=== PATIENT | female | born 1970 | race Caucasian/White ===

== ENCOUNTER 2016-10-30 00:59 | Emergency (ER) | payer OTHER ==
--- NOTE | 2016-10-30 02:47 | C.PDOC ---
History Of Present Illness Pt presents to ER with c/o of pain to left shoulder, arm, ribs and hip s/o fell in shower and hit her left side on the rim of the tub. Pt denies Head injury or LOC - HPI Time Seen by Provider: 10/30/16 01:23 Chief Complaint (Nursing): Trauma History Per: Patient History/Exam Limitations: no limitations Location Of Injury: Left: Chest (ribs), Elbow, Forearm, Hip, Shoulder Severity: Moderate Pain Scale Rating Of: 5 Past Medical History Vital Signs: Last Vital Signs Temp 98 F 10/30/16 03:14 Pulse 60 10/30/16 03:14 Resp 18 10/30/16 03:14 BP 114/78 10/30/16 03:14 Pulse Ox 97 10/30/16 04:07 - Medical History PMH: Asthma Family History: States: Unknown Family Hx - Social History Hx Tobacco Use: Yes Hx Alcohol Use: Yes Hx Substance Use: No - Immunization History Hx Tetanus Toxoid Vaccination: No Hx Influenza Vaccination: No Hx Pneumococcal Vaccination: No Review Of Systems Eyes: Negative for: Vision Change Cardiovascular: Positive for: Other (left ribs). Negative for: Chest Pain Respiratory: Negative for: Shortness of Breath Gastrointestinal: Negative for: Nausea, Vomiting Musculoskeletal: Positive for: Shoulder Pain, Leg Pain (left hip), Other Skin: Positive for: Bruising Neurological: Negative for: Weakness, Numbness Physical Exam - Physical Exam Appears: Well, Non-toxic, No Acute Distress Skin: Normal Color Head: Atraumatic Eye(s): bilateral: Normal Inspection, PERRL, EOMI Neck: Normal, No Midline Cervical Tenderness, No Paracervical Tenderness Chest: No Deformity, Tenderness (left mid intercostal area posteriorly), Ecchymosis (left lateral breas tissue) Respiratory: Normal Breath Sounds, No Wheezing Extremity: No Normal ROM (causes pain to LUE, left hip), Tenderness (ant left shoulder , left forearm and left hip), No Deformity, No Swelling Neurological/Psych: Oriented x3, Normal Speech Gait: Other ED Course And Treatment O2 Sat by Pulse Oximetry: 97 - Other Rad Left shoulder/ forearm X-Ray: Interpreted by Me, Viewed By Me left hip X-Ray: Interpreted by Me, Viewed By Me Interpretation: negative left ribs X-Ray: Interpreted by Me, Viewed By Me Interpretation: No fx Reassessment Condition: Improved Disposition Counseled Patient/Family Regarding: Diagnosis, Need For Followup, Rx Given - Disposition Referrals: at [facility] [Outside] Disposition: HOME/ ROUTINE Disposition Time: 02:55 Condition: STABLE Additional Instructions: Take motrin for pain Follow up with pMD or in clinic Return to ER if worse Prescriptions: Ibuprofen [Motrin] 600 mg PO Q6H #30 tab Instructions: Contusion in Adults (ED) Forms: [facility] (Cymraes), Work Excuse - Clinical Impression Clinical Impression: Contusion of multiple sites
[2016-10-30 03:14] VITALS: BP 114/78; PULSE 60; RESP 18; TEMP 98
[2016-10-30 04:07] VITALS: O2SAT 97
--- NOTE | 2016-10-30 10:31 | RAD ---
PROCEDURE: Radiographs of the Left Shoulder HISTORY: pain COMPARISON: Chest x-ray performed 08/13/15 FINDINGS: BONES: No acute displaced fracture. The distal clavicle and underlying ribs appear intact. Well corticated 2 mm ossific density at the level the acromioclavicular joint space likely degenerative or related to remote trauma. JOINTS: No acute dislocation. SOFT TISSUES: Soft tissues appear unremarkable. No evidence of radiopaque foreign body. IMPRESSION: No acute displaced fracture or dislocation identified. If symptoms persist or if there is continued clinical concern, x-ray follow-up in 7-10 days should be considered.
--- NOTE | 2016-10-30 11:31 | RAD ---
PROCEDURE: Radiographs of the Left Forearm HISTORY: pain, fall COMPARISON: None available. TECHNIQUE: Frontal and lateral views obtained. FINDINGS: BONES: No fracture or destructive lesion. JOINT SPACES: Unremarkable. OTHER FINDINGS: None. IMPRESSION: Unremarkable radiographs of the left forearm.
--- NOTE | 2016-10-30 11:31 | RAD ---
PROCEDURE: Left Hip X-ray Radiographs. HISTORY: pain, fall COMPARISON: None. FINDINGS: BONES: Normal. No fracture. JOINTS: Normal. SOFT TISSUES: Normal. OTHER FINDINGS: None. IMPRESSION: Normal left hip radiographs.
--- NOTE | 2016-10-30 11:32 | RAD ---
PROCEDURE: Radiographs of the Chest and Left Ribs. HISTORY: pain , fall COMPARISON: None available. TECHNIQUE: Frontal radiograph of the chest and multiple oblique radiographs of the left ribs were obtained. FINDINGS: LEFT RIBS: No fracture or focal lesion visualized. LUNGS: Clear. PLEURA: No pneumothorax or pleural fluid. CARDIOVASCULAR: Normal sized heart. No pulmonary vascular congestion. OTHER FINDINGS: None. IMPRESSION: Unremarkable radiographs of the chest and left ribs. No left rib fracture.
== END 2016-10-30 03:15 | disposition home or self-care (01) ==
LOC: C.ER 00:59
DX: S20.212A Contusion of left front wall of thorax, initial encounter (principal); W01.198A Fall on same level from slipping, tripping and stumbling with subsequent striking against other object, initial encounter; Y93.E1 Activity, personal bathing and showering; Y92.002 Bathroom of unspecified non-institutional (private) residence as the place of occurrence of the external cause

== ENCOUNTER 2017-02-22 08:34 | Emergency (ER) | payer OTHER ==
[2017-02-22 08:39] VITALS: BMI 36.3
[2017-02-22 09:05] VITALS: O2SAT 98
[2017-02-22] MEDS ORDERED: Albuterol-Ipratrop 3 mg / 0.5 (3 ml) UD IH STA (09:36)
--- NOTE | 2017-02-22 09:38 | C.PDOC ---
History Of Present Illness 47 year old female presents to the ED c/o wheezing, cough along with pleuritic pain for the past 3 days. Patient also reports a subjective fever and chills that according to her "I get during this time of the year". Patient denies Hx of asthma, MIXON, productive cough, nausea, vomit, abdominal pain. CO WHEEZE, COUGH PLEURITIC PAIN X 3 DAYS. SUBJ FEVER, +CHILLS. "I GET THIS DURING THIS TIME OF YEAR". DENIES HO ASTHMA. NO MIXON. +PROD COUGH EXAM MILD DIST NONTOXIC HEENT NEG LUNGS +AUDIBLE WHEEZE W RETRACTION, MILD TACHYPNEA SPEAKING UFLL SENTENCES + BRONCHIAL SOUNDS CV RRR REMAINDER NEG Time Seen by Provider: 02/22/17 09:15 Chief Complaint (Nursing): Shortness Of Breath History Per: Patient History/Exam Limitations: no limitations Onset/Duration Of Symptoms: Days Current Symptoms Are (Timing): Still Present Sick Contacts (Context): None Associated Symptoms: Fever (Subjective), Chills, Cough. denies: Sputum, Vomiting, Diarrhea Recent travel outside of the [place] States: No Additional History Per: Patient Past Medical History Reviewed: Historical Data, Nursing Documentation, Vital Signs Vital Signs: Last Vital Signs Temp 98.6 F 02/22/17 08:45 Pulse 88 02/22/17 08:45 Resp 16 02/22/17 09:42 BP 141/80 02/22/17 08:45 Pulse Ox 98 02/22/17 09:54 - Medical History PMH: Asthma, Bronchitis Surgical History: No Surg Hx Family History: States: Unknown Family Hx - Social History Hx Tobacco Use: Yes Hx Alcohol Use: Yes Hx Substance Use: No - Immunization History Hx Tetanus Toxoid Vaccination: No Hx Influenza Vaccination: No Hx Pneumococcal Vaccination: No Review Of Systems Constitutional: Positive for: Fever (Subjective), Chills Cardiovascular: Positive for: Chest Pain (Pleuritic). Negative for: Palpitations Respiratory: Positive for: Cough. Negative for: Shortness of Breath, Sputum Gastrointestinal: Negative for: Nausea, Vomiting, Abdominal Pain Musculoskeletal: Negative for: Neck Pain Skin: Negative for: Rash Neurological: Negative for: Weakness, Numbness, Headache Physical Exam - Physical Exam Appears: Non-toxic, Other (Mild distress) Skin: Normal Color, Warm, Dry Head: Atraumatic, Normacephalic Eye(s): bilateral: Normal Inspection, PERRL, EOMI Ear(s): Bilateral: Normal Nose: No Discharge, No Deformity Oral Mucosa: Moist, No Drooling Throat: Normal, No Erythema, No Exudate Neck: Normal ROM, Supple Chest: Symmetrical Cardiovascular: Rhythm Regular, No Murmur Respiratory: Wheezing (Audible with retraction ), Other (Mild tachypnea speaking full sentences, + bronchial sounds) Gastrointestinal/Abdominal: Soft, No Tenderness, No Guarding, No Rebound Back: No CVA Tenderness Extremity: Normal ROM, No Deformity, No Swelling Neurological/Psych: Oriented x3, Normal Speech, Normal Cognition Gait: Steady ED Course And Treatment O2 Sat by Pulse Oximetry: 98 (On RA) Pulse Ox Interpretation: Normal - Radiology CXR: Interpreted by Me CXR Interpretation: Yes: No Acute Disease Medical Decision Making Medical Decision Making: Plan: * Duoneb 3 ml IH given * Motrin 600 mg PO given * Tessalon perles 200 mg PO given * Prednisone 60 mg PO given * Nebulizer treatment given * CXR ordered Disposition Counseled Patient/Family Regarding: Studies Performed, Diagnosis, Need For Followup, Rx Given - Disposition Referrals: YOUR,PMD [Other] Disposition: HOME/ ROUTINE Disposition Time: 09:53 Condition: IMPROVED Prescriptions: Albuterol HFA [Ventolin HFA 90 mcg/actuation (8 g)] 1 puff IH Q4 #1 inhaler Azithromycin 250 mg PO DAILY #6 tab Benzonatate [Tessalon Perles] 200 mg PO TID PRN #15 sgl PRN Reason: Cough predniSONE [Prednisone] 60 mg PO DAILY #12 tab Instructions: Acute Bronchitis (ED) Forms: [facility] (Greenlandic), Work Excuse - Clinical Impression Clinical Impression: Bronchitis - Scribe Statement The provider has reviewed the documentation as recorded by the Scribe Juan Salgado All medical record entries made by the Scribe were at my direction and personally dictated by me. I have reviewed the chart and agree that the record accurately reflects my personal performance of the history, physical exam, medical decision making, and the department course for this patient. I have also personally directed, reviewed, and agree with the discharge instructions and disposition.
--- NOTE | 2017-02-22 09:47 | RAD ---
HISTORY: cough COMPARISON: 10/30/2016 TECHNIQUE: Chest PA and lateral FINDINGS: LUNGS: No active pulmonary disease. PLEURA: No significant pleural effusion identified. No pneumothorax apparent. CARDIOVASCULAR: Normal. OSSEOUS STRUCTURES: No significant abnormalities. VISUALIZED UPPER ABDOMEN: Normal. OTHER FINDINGS: None. IMPRESSION: No active disease.
[2017-02-22] MEDS ORDERED: Albuterol-Ipratrop 3 mg / 0.5 (3 ml) UD ONE (09:56)
[2017-02-22 10:32] VITALS: BP 137/83; PULSE 85; RESP 18; TEMP 97.7
== END 2017-02-22 10:33 | disposition home or self-care (01) ==
LOC: C.ER 08:34
DX: J40 Bronchitis, not specified as acute or chronic (principal)

== ENCOUNTER 2017-03-20 03:46 | Emergency (ER) | payer OTHER ==
[2017-03-20 03:46] VITALS: BMI 36.3
[2017-03-20] MEDS ORDERED: Albuterol 0.083% Inhal Sol (2.5 mg/3 mL) UD ONE (03:54)
[2017-03-20] MEDS ORDERED: Albuterol-Ipratrop 3 mg / 0.5 (3 ml) UD ONE ×2 (04:15→04:38)
[2017-03-20 04:21] VITALS: O2SAT 99
[2017-03-20] MEDS ORDERED: Albuterol-Ipratrop 3 mg / 0.5 (3 ml) UD IH STA (04:31)
--- NOTE | 2017-03-20 05:17 | C.PDOC ---
History Of Present Illness 47 year old female presents to the ER with a complaint of a productive cough with yellow sputum and wheezing for the past 5 days. Patient was seen here a few months ago for bronchitis and was discharged on zithromax. Denies fever, chills, or chest pain. Chief Complaint (Nursing): Shortness Of Breath History Per: Patient History/Exam Limitations: no limitations Onset/Duration Of Symptoms: Days Current Symptoms Are (Timing): Still Present Initiating Event: Other (Not known) Current Respiratory Medications: See Home Med List Associated Symptoms: Productive Cough, Other (Wheezing). denies: Fever, Chills , Chest Pain Recent travel outside of the [place]: No Past Medical History Reviewed: Historical Data, Nursing Documentation, Vital Signs Vital Signs: Last Vital Signs Temp 97.6 F 03/20/17 04:15 Pulse 90 03/20/17 04:15 Resp 24 03/20/17 04:15 BP 152/103 H 03/20/17 04:15 Pulse Ox 99 03/20/17 05:22 - Medical History PMH: Asthma, Bronchitis Family History: States: No Known Family Hx - Social History Hx Tobacco Use: Yes Hx Alcohol Use: Yes Hx Substance Use: No - Immunization History Hx Tetanus Toxoid Vaccination: No Hx Influenza Vaccination: No Hx Pneumococcal Vaccination: No Review Of Systems Constitutional: Negative for: Fever, Chills Cardiovascular: Negative for: Chest Pain Respiratory: Positive for: Cough, Sputum, Wheezing Physical Exam - Physical Exam Appears: Non-toxic Skin: Normal Color, Warm, Dry Head: Atraumatic, Normacephalic Eye(s): bilateral: Normal Inspection Oral Mucosa: Moist Chest: Symmetrical, No Tenderness Cardiovascular: Rhythm Regular Respiratory: No Rales, No Rhonchi, Wheezing Neurological/Psych: Oriented x3, Normal Speech ED Course And Treatment O2 Sat by Pulse Oximetry: 99 (Room air) Pulse Ox Interpretation: Normal - Radiology CXR: Interpreted by Me, Viewed By Me CXR Interpretation: Yes: No Acute Disease Progress Note: CXR ordered, results were negative. Patient given prednisone and albuterol nebulizer x3. On reevaluation, patient feels much better, lungs sounds are clear, will discharge home with Rx and instructions to follow up with PMD for further evaluation. Disposition - Disposition Referrals: Katie Puga MD [Staff Provider] - Disposition: HOME/ ROUTINE Disposition Time: 05:17 Condition: IMPROVED Additional Instructions: Follow up with your PMD within 1-2 days. Return to ED if feel worse. 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 - Scribe Statement The provider has reviewed the documentation as recorded by the Scribnikkie Quach All medical record entries made by the Kayleeibnikkie were at my direction and personally dictated by me. I have reviewed the chart and agree that the record accurately reflects my personal performance of the history, physical exam, medical decision making, and the department course for this patient. I have also personally directed, reviewed, and agree with the discharge instructions and disposition.
[2017-03-20 05:34] VITALS: BP 129/79; PULSE 95; RESP 18; TEMP 98.7
--- NOTE | 2017-03-20 08:00 | RAD ---
HISTORY: cough/wheezing COMPARISON: 02/22/2017 TECHNIQUE: Chest PA and lateral FINDINGS: LUNGS: No dense consolidation. The right infrahilar peribronchial markings appear slightly increased -a lateral view retrocardiac location here a peribronchial thickening -bronchitic process is compatible with this . PLEURA: No significant pleural effusion identified. No pneumothorax apparent. CARDIOVASCULAR: Normal. OSSEOUS STRUCTURES: No significant abnormalities. VISUALIZED UPPER ABDOMEN: Normal. OTHER FINDINGS: None. IMPRESSION: Right infrahilar slight interval peribronchial thickening perceived -a bronchitis is consistent with this. No dense consolidation. No pleural effusion . Clinical follow-up recommended
== END 2017-03-20 05:34 | disposition home or self-care (01) ==
LOC: C.ER 03:46
DX: J40 Bronchitis, not specified as acute or chronic (principal); Z87.891 Personal history of nicotine dependence

== ENCOUNTER 2017-06-03 11:03 | Emergency (ER) | payer OTHER ==
[2017-06-03 11:06] VITALS: BMI 38.2
[2017-06-03] MEDS ORDERED: Lidocaine 5% Patch TD STA (11:32)
[2017-06-03] MEDS ORDERED: Lidocaine 5% Patch TD ONE (11:43)
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
[2017-06-03 12:51] VITALS: BP 127/84; PULSE 94; RESP 20; TEMP 98.9; O2SAT 99
== END 2017-06-03 12:51 | disposition home or self-care (01) ==
LOC: C.ER 11:03
DX: S16.1XXA Strain of muscle, fascia and tendon at neck level, initial encounter (principal); X58.XXXA Exposure to other specified factors, initial encounter; M62.838 Other muscle spasm; Z72.0 Tobacco use
CPT/HCPCS: 96372; 99283; J1885

== ENCOUNTER 2017-09-19 17:51 | Emergency (ER) | payer OTHER ==
[2017-09-19 18:05] VITALS: BMI 38.1
[2017-09-19 18:07] VITALS: O2SAT 97
[2017-09-19] MEDS ORDERED: Naproxen 550 mg Tab PO STA (18:36)
[2017-09-19] MEDS ORDERED: Naproxen 550 mg Tab PO ONE (18:45)
--- NOTE | 2017-09-19 18:56 | C.PDOC ---
Time Seen by Provider: 09/19/17 18:07 Chief Complaint (Nursing): Lower Extremity Problem/Injury Past Medical History Vital Signs: Last Vital Signs Temp 98.4 F 09/19/17 18:05 Pulse 82 09/19/17 18:05 Resp 20 09/19/17 18:05 BP 128/84 09/19/17 18:05 Pulse Ox 97 09/19/17 18:05 - Medical History PMH: Asthma, Bronchitis Family History: States: Unknown Family Hx - Social History Hx Tobacco Use: Yes Hx Alcohol Use: Yes Hx Substance Use: No - Immunization History Hx Tetanus Toxoid Vaccination: No Hx Influenza Vaccination: No Hx Pneumococcal Vaccination: No ED Course And Treatment O2 Sat by Pulse Oximetry: 97 Disposition Counseled Patient/Family Regarding: Studies Performed, Diagnosis, Need For Followup, Rx Given - Disposition Referrals: Podiatry Clinic [Outside] Disposition: HOME/ ROUTINE Disposition Time: 18:55 Condition: STABLE Additional Instructions: FOLLOW UP WITH PODIATRY WITHIN 1 WEEK USE PAIN MEDICATION NEEDED RETURN TO ER IF SYMPTOMS WORSEN Prescriptions: Naproxen 375 mg PO BID PRN #20 tablet PRN Reason: pain Instructions: Ganglion Cyst (DC) Print Language: LAO - Clinical Impression Clinical Impression: Ganglion cyst of foot, Right ankle pain
--- NOTE | 2017-09-19 18:56 | C.PDOC ---
History Of Present Illness 47-year-old female presents to the ED for evaluation of right ankle pain x 2 weeks. Patient does not recall any injuries. Patient reports pain is worse with ambulation. She states the pain worsened today, prompting ER visit. She denies fever, chills, rash, sensory changes. Time Seen by Provider: 09/19/17 18:07 Chief Complaint (Nursing): Lower Extremity Problem/Injury History Per: Patient History/Exam Limitations: no limitations Onset/Duration Of Symptoms: Other (2 weeks ) Current Symptoms Are (Timing): Worse Severity: Mild - Ankle/Foot Description Of Injury: denies: Fell, Struck With Object, Struck Against Object, Twisted Past Medical History Reviewed: Historical Data, Nursing Documentation, Vital Signs Vital Signs: Last Vital Signs Temp 98.8 F 09/19/17 19:50 Pulse 71 09/19/17 19:50 Resp 16 09/19/17 19:50 BP 141/89 09/19/17 19:50 Pulse Ox 97 09/19/17 22:34 - Medical History PMH: Asthma, Bronchitis Surgical History: No Surg Hx Family History: States: No Known Family Hx - Social History Hx Tobacco Use: Yes Hx Alcohol Use: Yes Hx Substance Use: No - Immunization History Hx Tetanus Toxoid Vaccination: No Hx Influenza Vaccination: No Hx Pneumococcal Vaccination: No Review Of Systems Constitutional: Negative for: Fever, Chills Musculoskeletal: Positive for: Other (right ankle pain ). Negative for: Leg Pain Skin: Negative for: Rash Neurological: Negative for: Numbness Physical Exam - Physical Exam Appears: Well, Non-toxic, No Acute Distress Skin: Normal Color, Warm, Dry, No Rash Eye(s): bilateral: Normal Inspection Cardiovascular: Rhythm Regular Respiratory: Normal Breath Sounds, No Rales, No Rhonchi, No Wheezing Extremity: Tenderness (to palpation of area immediately anterior to lateral malleolus, right foot ), Capillary Refill (< 2 sec all digits ), No Deformity, Swelling (1aapprox 0.5cm area ? ganglion cyst immediately anterior to lateral malleolus of right ankle) Pulses: Left Dorsalis Pedis: Normal, Right Dorsalis Pedis: Normal Neurological/Psych: Oriented x3, Normal Sensation Gait: Steady ED Course And Treatment O2 Sat by Pulse Oximetry: 97 (on RA) Pulse Ox Interpretation: Normal Progress Note: Xray of rigth ankle ordered and reviewed. Patient given Naproxen PO. Yogi Bandage applied to foot by ED nurse. Explained to patient I suspect a ganglion cyst, althoug a soft tissue injury/sprain is also possible. She was given Rx for naprosyn and instructed to follow up with podiatry within 1 week. Patient understands she should return to ED if symptoms worsen. Reevaluation Time: 19:00 Reassessment Condition: Improved Disposition Counseled Patient/Family Regarding: Diagnosis, Need For Followup, Rx Given - Disposition Referrals: Podiatry Clinic [Outside] Disposition: HOME/ ROUTINE Disposition Time: 19:00 Condition: STABLE Additional Instructions: FOLLOW UP WITH PODIATRY WITHIN 1 WEEK USE PAIN MEDICATION NEEDED RETURN TO ER IF SYMPTOMS WORSEN Prescriptions: Naproxen 375 mg PO BID PRN #20 tablet PRN Reason: pain Instructions: Ganglion Cyst (DC) Forms: [employer] (Mongolian), Work Excuse Print Language: ARMENIAN - Clinical Impression Clinical Impression: Ganglion cyst of foot, Right ankle pain - Scribe Statement The provider has reviewed the documentation as recorded by the Scribe (Tesha Aguilar) Provider Attestation: All medical record entries made by the Scribe were at my direction and personally dictated by me. I have reviewed the chart and agree that the record accurately reflects my personal performance of the history, physical exam, medical decision making, and the department course for this patient. I have also personally directed, reviewed, and agree with the discharge instructions and disposition.
[2017-09-19 20:01] VITALS: BP 141/89; PULSE 71; RESP 16; TEMP 98.8
--- NOTE | 2017-09-20 10:08 | RAD ---
PROCEDURE: Right Ankle Radiographs. HISTORY: RIGHT ANKLE PAIN R/O FX COMPARISON: None FINDINGS: BONES: Trace posterior talar process trace posterior calcaneal ocal thickening hyperostoses and trace Achilles insertional enthesophyte noted no fracture. JOINTS: Normal. No osteoarthritis. Ankle mortise maintained. Talar dome intact SOFT TISSUES: Normal. OTHER FINDINGS: None. IMPRESSION: No fracture Other findings -as above.
== END 2017-09-19 19:50 | disposition home or self-care (01) ==
LOC: C.ER 17:51
DX: M67.471 Ganglion, right ankle and foot (principal); M25.571 Pain in right ankle and joints of right foot

== ENCOUNTER 2018-03-13 16:17 | Emergency (ER) | payer SELFPAY ==
[2018-03-13 16:17] VITALS: BMI 38.1
[2018-03-13 16:26] VITALS: BP 135/87; PULSE 85; RESP 18; TEMP 99; O2SAT 96
--- NOTE | 2018-03-13 17:42 | C.PDOC ---
History Of Present Illness 48 y/o female presents to the ED complaining of cough, congestion, chills, and headache for the past 4-5 days. Headache is associated with sinus pressure and fullness. Patient also reports diffuse bodyaches and back pain when coughing. She denies any chest pain, SOB, or other associated symptoms. Time Seen by Provider: 03/13/18 16:28 Chief Complaint (Nursing): Cough, Cold, Congestion History Per: Patient History/Exam Limitations: no limitations Onset/Duration Of Symptoms: Days Current Symptoms Are (Timing): Still Present Location Of Pain: Ear(s), Diffuse Myalgias, Headache Past Medical History Reviewed: Historical Data, Nursing Documentation, Vital Signs Vital Signs: Last Vital Signs Temp 99.0 F 03/13/18 16:24 Pulse 85 03/13/18 16:24 Resp 18 03/13/18 16:24 BP 135/87 03/13/18 16:24 Pulse Ox 96 03/13/18 16:24 - Medical History PMH: Asthma, Bronchitis Family History: States: Unknown Family Hx - Social History Hx Tobacco Use: Yes Hx Alcohol Use: Yes Hx Substance Use: No - Immunization History Hx Tetanus Toxoid Vaccination: No Hx Influenza Vaccination: No Hx Pneumococcal Vaccination: No Review Of Systems Except As Marked, All Systems Reviewed And Found Negative. Constitutional: Positive for: Chills, Other (Bodyaches). Negative for: Fever Eyes: Negative for: Vision Change ENT: Positive for: Ear Pain, Nose Discharge, Nose Congestion. Negative for: Throat Pain Respiratory: Positive for: Cough. Negative for: Shortness of Breath, Wheezing Gastrointestinal: Negative for: Nausea, Vomiting, Diarrhea Musculoskeletal: Positive for: Back Pain (with cough) Skin: Negative for: Rash Neurological: Positive for: Headache. Negative for: Weakness, Numbness, Dizziness Physical Exam - Physical Exam Appears: Non-toxic, No Acute Distress Skin: Warm, Dry Head: Atraumatic, Normacephalic Eye(s): bilateral: Normal Inspection, PERRL, EOMI Ear(s): Bilateral: Normal (no erythema) Nose: Normal Oral Mucosa: Moist Throat: Normal (no tonsillar swelling), No Erythema, No Exudate Neck: Normal ROM, Supple Cardiovascular: Rhythm Regular, No Murmur Respiratory: Normal Breath Sounds, No Rales, No Rhonchi, No Wheezing Extremity: Bilateral: Atraumatic, Normal Color And Temperature Pulses: Left Radial: Normal, Right Radial: Normal Neurological/Psych: Oriented x3, Normal Speech ED Course And Treatment O2 Sat by Pulse Oximetry: 96 (RA) Pulse Ox Interpretation: Normal - Other Rad CXR X-Ray: Read By Radiologist Interpretation: Accession No. : [id number]. Patient Name / ID : KHRIS ROGERS / [id number]. Exam Date : 03/13/2018 17:18:39 ( Approved ). Study Comment : Sex / Age : F / 48Y. Creator : [place]. Dictator : Elena Eid MD. 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 Approver2 : Report Date : 03/13/2018 17:20:52. My Comment : . HISTORY: cough, fever. COMPARISON: Chest x- ray performed 08/18/16. TECHNIQUE: Chest PA and lateral. FINDINGS: Examination limited by habitus. LUNGS: Mild interstitial prominence. No focal consolidation. Please note that chest x-ray has limited sensitivity for the detection of pulmonary masses. PLEURA: No significant pleural effusion identified. No definite pneumothorax . CARDIOVASCULAR: Heart size appears within normal limits. Atherosclerotic calcification present. OSSEOUS STRUCTURES: Degenerative changes. VISUALIZED UPPER ABDOMEN: Unremarkable. OTHER FINDINGS: None. IMPRESSION: Mild interstitial prominence; correlate for possibility of infection or edema. Medical Decision Making Medical Decision Making: Plan: - Chest x-ray Disposition - Disposition Referrals: Carlos A Morillo MD [Medical Doctor] - Disposition: HOME/ ROUTINE Disposition Time: 18:02 Condition: STABLE Additional Instructions: Follow up with the medical doctor within 1-2 days. Return if worsened. 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 - Scribe Statement The provider has reviewed the documentation as recorded by the Scribe Ellen Infante All medical record entries made by the Scribe were at my direction and personally dictated by me. I have reviewed the chart and agree that the record accurately reflects my personal performance of the history, physical exam, medical decision making, and the department course for this patient. I have also personally directed, reviewed, and agree with the discharge instructions and disposition.
== END 2018-03-13 18:11 | disposition home or self-care (01) ==
LOC: C.ER 16:17
DX: J18.9 Pneumonia, unspecified organism (principal); F17.210 Nicotine dependence, cigarettes, uncomplicated

== ENCOUNTER 2018-08-16 12:50 | Emergency (ER) | payer OTHER | END 2018-08-16 14:05 | disposition home or self-care (01) | LOC: C.ER 12:50 ==